=== PATIENT | female | born 1970 | race African-American/Black ===

== ENCOUNTER 2018-03-01 13:38 | Emergency (ER) | payer OTHER ==
[~2018-03-01] VITALS: Ht 167.6 cm; Wt 100.0 kg
[2018-03-01] MEDS ORDERED: BACL-141 PO (13:51)
[2018-03-01] MEDS ORDERED: LOSA25TA12 PO (13:51)
[2018-03-01] MEDS ORDERED: AMLO5TAB4 PO (13:51)
[2018-03-01] MEDS ORDERED: [UNRECOGNIZED DRUG - REMARK] (13:51)
[2018-03-01] MEDS ORDERED: norco (13:51)
[2018-03-01] MEDS ORDERED: OXCA150T5 PO (13:51)
[2018-03-01] MEDS ORDERED: KETOROLAC 30MG/ML VIAL IV STA (14:17)
[2018-03-01] MEDS ORDERED: SODIUM CHLORIDE 0.9% 1,000 ML IV ONE (14:17)
[2018-03-01 14:51] LABS: EOSINOPHILS % 0.4 % (0.0-5.0); HEMATOCRIT. 34.9 % (36.0-48.0); HEMOGLOBIN. 11.7 g/dL (12.0-16.0); LYMPHOCYTES % 31.9 % (20.0-50.0); MEAN CORPUSCULAR HEMOGLOBIN 29.9 pg (28.0-32.0); MEAN PLATELET VOLUME 9.3 fl (7.4-10.4); MONOCYTES % 10.3 % (2.0-8.0); NEUTROPHILS % 56.4 % (40.0-76.0); PLATELET 245 x1000/uL (130-400); RED BLOOD CELL COUNT 3.92 mill/uL (4.2-5.4); RED CELL DISTRIBUTION WIDTH 14.8 % (11.6-14.6)
[2018-03-01 14:58] LABS: CHLORIDE 103 mEq/L (98-107)
[2018-03-01 14:59] LABS: PROTHROMBIN TIME 10.6 sec (9.4-11.6)
[2018-03-01] MEDS ORDERED: MORPHINE SULFATE 4 MG/ML CPJ (NOT FOR IM USE) IV ONE (18:45)
[2018-03-01 20:00] VITALS: BP 155/100
== END 2018-03-01 21:05 | disposition home or self-care (01) ==
LOC: ER 14:10
DX: R51 Headache (principal); R22.0 Localized swelling, mass and lump, head; I10 Essential (primary) hypertension; F12.10 Cannabis abuse, uncomplicated; I69.351 Hemiplegia and hemiparesis following cerebral infarction affecting right dominant side; I69.328 Other speech and language deficits following cerebral infarction
CPT/HCPCS: 36415; 70450; 70487; 80053; 85025; 85610; 96374; 96375; 99285; J1885; J2270; J7030